=== PATIENT | male | born 1965 | race Caucasian/White ===

== ENCOUNTER 2020-01-01 11:51 | Emergency (ER) | payer MEDICAID ==
[~2020-01-01] VITALS: Ht 160 cm; Wt 59.0 kg
[2020-01-01 12:00] VITALS: BP 119/72
[2020-01-01] MEDS ORDERED: LIDOCAINE 1% HCL (LOCAL ANESTH.) INJ 20ML MDV IJ ONE (13:45)
[2020-01-01] MEDS ORDERED: TETANUS-DIPTH-ACEL PERTUSSIS 0.5ML SYRG IM ONE (13:45)
== END 2020-01-01 15:13 | disposition home or self-care (01) ==
LOC: ER 11:51 → EDBD 11:51 → ER 15:13
DX: S81.011A Laceration without foreign body, right knee, initial encounter (principal); F17.210 Nicotine dependence, cigarettes, uncomplicated; W18.02XA Striking against glass with subsequent fall, initial encounter; Y93.89 Activity, other specified; Y92.488 Other paved roadways as the place of occurrence of the external cause; Y99.8 Other external cause status
CPT/HCPCS: 12002; 73562; 99283; J2001; 90715

== ENCOUNTER 2024-12-20 13:11 | Inpatient (IN) | payer MEDICAID ==
[~2024-12-20] VITALS: Ht 160 cm; Wt 50.0 kg
--- NOTE | 2024-12-20 13:45 | ED.PDOC ---
SOB-HPI HPI Comments 59 y.o male presents to the ED for a chief complaint of SOB that started 4 days ago but worsened last night. Patient reports feeling a "drowning" sensation while laying down. Patient initially reported to triage nurse that he is homeless, has been sleeping outside and exposed to the cold weather for an extended amount of hours, but upon my assessment, patient denied being homeless and that his home place is originally cold inside. Patient is a poor historian. No other symptoms or pain reported. Chief Complaint: Shortness of Breath Time Seen by MD: 13:26 Primary Care Provider: JACQUELINE Reviewed notes: Nurses Notes, Medications, Allergies Information Source: Patient Mode of Arrival: Ambulatory Severity: Moderate Timing: Days (4) Duration: Since onset Context: At Rest PE Risk Factors: None History of: None Modifying Factors: Nothing Past Medical History PAST MEDICAL HISTORY: Denies Surgical History: Denies all surgeries Family History Family History: Reviewed,noncontributory to illness Social History Smoker: Cigarettes Alcohol: Heavy Drugs: Denies Drug Use Lives In: Homeless Constitutional: denies: chills, diaphoresis, fatigue, fever, malaise, sweats, weakness, others EENTM: denies: blurred vision, double vision, ear bleeding, ear discharge, ear drainage, ear pain, ear ringing, eye pain, eye redness, hearing loss, mouth pain, mouth swelling, nasal discharge, nose bleeding, nose congestion, nose pain, photophobia, tearing, throat pain, throat swelling, voice changes, others Respiratory: reports: SOB at rest, shortness of breath, SOB with excertion; denies: cough, hemoptysis, orthopnea, stridor, wheezing, others Cardiovascular: denies: chest pain, dizzy spells, diaphoresis, Dyspnea on exertion, edema, irregular heart beat, left arm pain, lightheadedness, palpitations, PND, syncope, others Gastrointestinal: denies: abdomen distended, abdominal pain, blood streaked bowels, constipated, diarrhea, dysphagia, difficulty swallowing, hematemesis, melena, nausea, poor appetite, poor fluid intake, rectal bleeding, rectal pain, vomiting, others Genitourinary: denies: burning, dysuria, flank pain, frequency, hematuria, incontinence, penile discharge, penile sore, pain, testicle pain, testicle swel ling, urgency, others Neurological: denies: dizziness, fainting, headache, left sided numbness, left sided weakness, numbness, paresthesia, pre-existing deficit, right sided numbness, right sided weakness, seizure, speech problems, tingling, tremors, weakness, others Musculoskeletal: denies: back pain, gout, joint pain, joint swelling, muscle pain, muscle stiffness, neck pain, others Integumetry: denies: bruises, change in color, change in hair/nails, dryness, laceration, lesions, lumps, rash, wounds, others Allergic/Immunocompromised: denies: Difficulty Healing, Frequent Infections, Hives, Itching, others Hematologic/Lymphatic: denies: anemia, blood clots, easy bleeding, easy bruising, swollen glands, others Endocrine: denies: excessive hunger, excessive sweating, excessive thirst, excessive urination, flushing, intolerance to cold, intolerance to heat, unexplained weight gain, unexplained weight loss, others Psychiatric: denies: anxiety, bipolar disorder, depression, hopeless, panic disorder, schizophrenia, sleepless, suicidal, others All Other Systems: Reviewed and Negative Physical Exam General Appearance: No Apparent Distress, Normal HEENT: Normal ENT Inspection, Pharynx Normal, TMs Normal Neck: Full Range of Motion, Non-Tender, Normal, Normal Inspection Respiratory: Chest Non-Tender, Lungs Clear, No Accessory Muscle Use, No Respiratory Distress, Normal Breath Sounds Cardiovascular: No Edema, No JVD, No Murmur, No Gallop, Normal Peripheral Pulses, Regular Rate/Rhythm Breast Exam: Deferred Gastrointestinal: No Organomegaly, Non Tender, No Pulsatile Mass, Normal Bowel Sounds, Soft Genitalia: Deferred Pelvic: Deferred Rectal: Deferred Extremities: No calf tenderness, Normal capillary refill, Normal inspection, Normal range of motion, Non-tender, No pedal edema Musculoskeletal : Apperance: Normal Neurologic: Alert, lap hand tool II-XII nml as Tested, No Motor Deficits, Normal Affect, Normal Mood, No Sensory Deficits Cerebellar Function: Normal Reflexes: Normal Skin: Dry, Normal Color, Warm Lymphatic: No Adenopathy Was a procedure done? Was a procedure done?: No Differential Dx Differential Diagnosis: COPD, Pneumonia, Respiratory Distress, URI X-Ray, Labs, Meds, VS Vital Signs Date Time Temp Pulse Resp B/P (MAP) Pulse Ox O2 Delivery O2 Flow Rate FiO2 12/20/24 14:29 126 12/20/24 13:26 136 12/20/24 13:25 22 99 Room Air 0 12/20/24 13:20 99.1 141 22 134/99 (111) 99 Lab Test 12/20/24 14:45 12/20/24 13:56 Range/Units Troponin I High Sensitivity 15 15 </=54 ng/L White Blood Count 17.7 H 4.4-10.8 10^3/uL Red Blood Count 5.05 4.5-5.90 10^6/uL Hemoglobin 15.5 13.5-17.5 g/dL Hematocrit 46.6 41.0-53.0 % Mean Corpuscular Volume 92.4 80.0-100.0 fL Mean Corpuscular Hemoglobin 30.7 28.0-32.0 pg Mean Corpuscular Hemoglobin Concent 33.3 32.0-36.0 g/dL Red Cell Distribution Width 13.1 11.8-14.3 % Platelet Count 261 140-450 10^3/uL Mean Platelet Volume 7.3 6.9-10.8 fL Neutrophils (%) (Auto) 84.7 H 37.0-80.0 % Lymphocytes (%) (Auto) 4.4 L 10.0-50.0 % Monocytes (%) (Auto) 10.4 0.0-12.0 % Eosinophils (%) (Auto) 0.1 0.0-7.0 % Basophils (%) (Auto) 0.4 0.0-2.0 % Neutrophils # (Auto) 15.0 H 1.6-8.6 10 ^3/uL Lymphocytes # (Auto) 0.8 0.4-5.4 10 ^3/uL Monocytes # (Auto) 1.8 H 0-1.3 10 ^3/uL Eosinophils # (Auto) 0 0-0.8 10 ^3/uL Basophils # (Auto) 0.1 0-0.2 10 ^3/uL Nucleated Red Blood Cells 0.0 % Prothrombin Time 11.5 9.3-11.8 sec Prothrombin Time INR 1.09 0.9-1.15 Activated Partial Thromboplast Time 31.5 24.5-34.5 SEC D-Dimer, Quantitative 1.93 H 0.0-0.49 mg/L FEU Sodium Level 133 L 136-145 mmol/L Potassium Level 3.9 3.5-5.1 mmol/L Chloride Level 100 98-107 mmol/L Carbon Dioxide Level 23 20-31 mmol/L Anion Gap 10 5-15 Blood Urea Nitrogen 16 9-23 mg/dL Creatinine 0.92 0.700-1.30 mg/dL Glomerular Filtration Rate Calc 97 >90 mL/min BUN/Creatinine Ratio 17.4 10.0-20.0 Serum Glucose 128 H 74-106 mg/dL Calcium Level 9.9 8.7-10.4 mg/dL Magnesium Level 1.8 1.6-2.6 mg/dL Total Bilirubin 0.5 0.2-1.0 mg/dL Aspartate Amino Transferase (AST) 50 H 13-40 U/L Alanine Aminotransferase (ALT) 50 H 7-40 U/L Alkaline Phosphatase 160 H 46-116 U/L B-Type Natriuretic Peptide 55.36 0-100 pg/mL Total Protein 7.0 5.7-8.2 g/dL Albumin 4.6 3.2-4.8 g/dL CHEST RADIOGRAPH Indication: dyspnea Technique: Single frontal view of the chest was obtained COMPARISON: None FINDINGS: There is patchy infiltrate in the right lung base partially obscuring the right hemidiaphragm. No pneumothorax or pulmonary edema. The heart is not enlarged. There is thoracolumbar scoliosis. There are postoperative changes of single posterior spinal dayday. The right humeral head is high-riding consistent with significant rotator cuff tendinopathy. IMPRESSION: 1. Right basilar pneumonia. 2. The left lung is clear. X-Ray, Labs, Meds, VS Comment This chronically unwell appearing 59-year-old male presents to the emergency room secondary to to 3 history of shortness of breath. Shortness of breath and worse when he lays down. Physical exam was benign. The patient did not have lower extremity edema or any adventitious breath sounds. His EKG showed a right bundle branch block. Second EKG was read by the machine as being a STEMI. We r eached out to Dr. Montgomery who agreed this is not a STEMI. Time of 1ST Reevaluation: 13:43 Reevaluation 1ST: Unchanged Patient Education/Counseling: Diagnosis, Treatment, Prognosis Family Education/Counseling: No Family Present Critical Care Note Critical Care Time?: No Stability Stability form required: No Heart Score Heart Score: Heart Score Response (Comments) Value History N/A 0 EKG N/A 0 Age N/A 0 Risk Factors N/A 0 Troponin N/A 0 Total 0 I personally scribed for SONJA LAZO MD ([email or web address]) on 12/20/24 at 13:45. Electronically submitted by Danae Chandra ([facility]). I personally scribed for SONJA LAZO MD ([email or web address]) on 12/20/24 at 15:32. Electronically submitted by Danae Chandra ([facility]). SONJA LAZO MD Dec 20, 2024 13:45
--- NOTE | 2024-12-20 13:59 | DVH ---
CHEST RADIOGRAPH Indication: dyspnea Technique: Single frontal view of the chest was obtained COMPARISON: None FINDINGS: There is patchy infiltrate in the right lung base partially obscuring the right hemidiaphragm. No pne umothorax or pulmonary edema. The heart is not enlarged. There is thoracolumbar scoliosis. There are postoperative changes of single posterior spinal dayday. The right humeral head is high-riding consiste nt with significant rotator cuff tendinopathy. IMPRESSION: 1. Right basilar pneumonia. 2. The left lung is clear.
[2024-12-20 14:23] LABS: Basophils # (auto) 0.1 10 ^3/uL (0-0.2); Basophils % (auto) 0.4 % (0.0-2.0); Eosinophils # (auto) 0 10 ^3/uL (0-0.8); Eosinophils % (auto) 0.1 % (0.0-7.0); Hematocrit 46.6 % (41.0-53.0); Hemoglobin 15.5 g/dL (13.5-17.5); Lymphocytes # (auto) 0.8 10 ^3/uL (0.4-5.4); Lymphocytes % (auto) 4.4 % (10.0-50.0); Mean Corpuscular Hemoglobin 30.7 pg (28.0-32.0); Mean Corpuscular Hgb Conc. 33.3 g/dL (32.0-36.0); Mean Corpuscular Volume 92.4 fL (80.0-100.0); Monocytes # (auto) 1.8 10 ^3/uL (0-1.3); Monocytes % (auto) 10.4 % (0.0-12.0); Neutrophils % (auto) 84.7 % (37.0-80.0); Platelet Count (auto) 261 10^3/uL (140-450); Red Blood Cells 5.05 10^6/uL (4.5-5.90); Red Cell Distribution Width 13.1 % (11.8-14.3); White Blood Cell 17.7 10^3/uL (4.4-10.8)
[2024-12-20 14:39] LABS: Albumin 4.6 g/dL (3.2-4.8); Anion Gap 10 (5-15); BUN/Creatinine Ratio 17.4 (10.0-20.0); Blood Urea Nitrogen 16 mg/dL (9-23); Calcium 9.9 mg/dL (8.7-10.4); Carbon Dioxide 23 mmol/L (20-31); Chloride 100 mmol/L (98-107); Magnesium 1.8 mg/dL (1.6-2.6); Potassium 3.9 mmol/L (3.5-5.1)
[2024-12-20 14:40] LABS: Bilirubin, Total 0.5 mg/dL (0.2-1.0)
[2024-12-20 14:55] LABS: Alanine Aminotransferase 50 U/L (7-40); Alkaline Phosphatase 160 U/L (46-116); Aspartate Aminotransferase 50 U/L (13-40); Glucose 128 mg/dL (74-106); Sodium 133 mmol/L (136-145)
[2024-12-20 15:22] LABS: INR 1.09 (0.9-1.15); Partial Thromboplastin Time 31.5 SEC (24.5-34.5); Prothrombin Time 11.5 sec (9.3-11.8)
--- NOTE | 2024-12-20 16:25 | ECG ---
[facility] Test Date: 2024-12-20 Test Time: 16:23:15 Pat Name: JOSE ANTONIO DE LA O Department: ER Room: 0218T Gender: M Application Technician: DAXA : 1965 Requested By: SONJA LAZO Order Number: [id number] Reading MD: Aditya Farr Measurements Intervals [place] Rate: 126 P: 16 ID: 131 QRS: 19 QRSD: 133 T: 24 QT: 326 QTc: 473 Interpretive Statements Sinus tachycardia Right bundle branch block LVH by voltage Inferior infarct, acute (LCx) Lateral leads are also involved Electronically Signed On 12-24-2024 16:28:56 PST by Aditya Farr Please click the below link to view image of tracing.
[2024-12-20] MEDS: METOPROLOL TARTRATE 1MG/1ML-5ML VIAL IV ONE (17:41)
[2024-12-20 18:06] LABS: COVID19 ANTIGEN SOFIA FIA NEGATIVE (NEGATIVE); Rapid Influenza A Negative (Negative); Rapid Influenza B Negative (Negative)
[2024-12-20] MEDS ORDERED: NITROGLYCERIN 0.4 MG SL TAB SL PRN (19:00)
[2024-12-20] MEDS ORDERED: ONDANSETRON HCL 4 MG/2 ML VIAL IV PRN (19:00)
[2024-12-20] MEDS ORDERED: MORPHINE SULFATE INJ 2 MG/ml SYRG IV PRN (19:00)
[2024-12-20] MEDS ORDERED: TEMAZEPAM 15 MG CAP PO PRN (19:00)
[2024-12-20 19:45] VITALS: PULSE 138; RESP 18; O2SAT 95
[2024-12-20 19:50] LABS: Lactic Acid w/Reflex 3.1 mmol/L (0.4-2.0)
[2024-12-20] MEDS: cefTRIAXone 1GM/50ML D5W 50 ML IV ONE (20:05)
[2024-12-20] MEDS: cefTRIAXone 1GM/50ML D5W 50 ML IV SCH (20:06)
[2024-12-20] MEDS: SODIUM CHLORIDE 0.9% 500 ML IV ONE (20:06)
[2024-12-20] MEDS: ACETAMINOPHEN 325 MG TAB PO PRN (20:07)
[2024-12-20] MEDS: IOHEXOL 350 MG/ML 100ML IJ ONE (20:17)
[2024-12-20] MEDS: AZITHROMYCIN 500MG/ 250ML 250 ML IV ONE (20:54)
[2024-12-20 22:05] VITALS: O2SAT 95
[2024-12-20 22:06] VITALS: BP 134/92; PULSE 117; RESP 16; TEMP 98; O2SAT 95
--- NOTE | 2024-12-20 22:12 | DVH ---
INDICATION: r/o pe COMPARISON: No prior studies for comparison. TECHNIQUE: Multidetector CTA of the chest was performed of the chest with 100 cc of intravenous contr ast. PULMONARY ANGIOGRAPHY PROTOCOL was utilized using a bolus-tracking technique centered on the sonya n pulmonary artery. Axial, coronal and sagittal multiplanar and MIP reformats were performed. Radiation Dose Information: CT Dose: CTDI volume is 9.81 mGy. Dose-length product is 409.58 mGy*cm Omnipaque 350: 100 mL The dose indicators for CT are the volume Computed Tomography (CT) Dose Index (CTDIvol) and the Dose Length Product (DLP), and are measured in units of mGy and mGy-cm, respectively. These indicators are not patient dose, but values generated from the CT scanner acquisition factors. The report includes radiation exposure data for exposures received during this examination. Findings: Pulmonary artery: Normal caliber of the pulmonary artery. No large central or large segmental pulmo nary embolism. Lower neck: Normal thyroid. Lungs: 2.5 x 2.2 cm pleural-based nodule or mass Heart/Vascular Structures: Normal heart size. Normal caliber and enhancement of the aorta. Lymph Nodes: No adenopathy Pleura: No pleural effusion or significant pneumothorax. Musculoskeletal: No acute osseous abnormality. Dextroscoliosis of the thoracic spine. Paraspinal ro d in place in the thoracic spine. Compression T10. Upper abdomen: Limited portions of the upper abdomen are unremarkable. IMPRESSION: 1. No pulmonary embolism. 2. No findings of pulmonary artery hypertension. 3. 2.5 x 2.2 cm pleural-based consolidation left upper lung field recommend PET scan and/or follow-u p CT to evaluate for change. HS:Y
[2024-12-21] VITALS (12 sets, daily range): BP systolic 115–135; BP diastolic 75–91; PULSE 85–129; RESP 18–28; TEMP 99–101.7; O2SAT 94–100
--- NOTE | 2024-12-21 00:41 | DVHHP2 ---
History of Present Illness Reason for Visit: Shortness of breath History of Present Illness 59-year-old male presents for evaluation of shortness for breath. Patient endorses a four day history of worsening shortness for breath with associated cough with yellow phlegm. Denies chest pain or palpitations. Reports occasional chills. No other acute complaints reported. Past Medical History Denies Past Surgical History Denies Family History Noncontributory Smoke: No ALCOHOL: none Drugs: None Lives: with Family Review of Systems Review of Systems Review of systems are currently negative otherwise addressed in HPI. Allergies: Coded Allergies: NO KNOWN ALLERGIES (Unverified , 02/08/14) Medications Current Medications Medications Dose Ordered Sig/Thierry Route Start Time Stop Time Status Last Admin Dose Admin Ceftriaxone Sodium 50 ml @ 100 mls/hr DAILY@1900 IV 12/21/24 19:00 12/20/24 20:06 100 MLS/HR Azithromycin 250 ml @ 125 mls/hr DAILY IV 12/21/24 19:00 Albuterol 2.5 mg Q6HPRN PRN NEB 12/20/24 19:00 Temazepam 15 mg QHSP PRN PO 12/20/24 19:00 Ondansetron HCl 4 mg Q4HP PRN IV 12/20/24 19:00 Acetaminophen 650 mg Q6HP PRN PO 12/20/24 19:00 12/20/24 20:07 650 MG Nitroglycerin 0.4 mg Q5MINP PRN SL 12/20/24 19:00 Morphine Sulfate 2 mg Q30M PRN IV 12/20/24 19:00 Exam Vital Signs Vital Signs Date Time Temp Pulse Resp B/P (MAP) Pulse Ox O2 Delivery O2 Flow Rate FiO2 12/20/24 23:00 98.7 104 18 124/87 (99) 96 98.7 12/20/24 22:06 21 12/20/24 22:05 Room Air* 0 Exam Gen: 59-year-old male distress Skin: Warm, dry, normal color and texture, no rash. HEENT: Normocephalic atraumatic, mucous membranes moist and pink. Neck: Cervical and supraclavicular nodes normal without enlargement, trachea is midline, thyroid gland is normal without masses. Pulmonary: Clear to auscultation and percussion bilaterally. Cardiac: Regular rate and rhythm. No murmur Abdomen: Soft, nontender, nondistended, bowel sounds present all 4 quadrants, no guarding, no rigidity, no organomegaly. Extremities: No cyanosis, clubbing, no edema Neuro: Cranial nerves II through XII grossly intact, normal affect and speech, no focal motor deficits. Labs/Xrays ORDERING PHYSICIAN: SONJA LAZO MD PROCEDURE(s): CXRP - CHEST PORTABLE REASON: dyspnea ORDER NUMBER(s): [id number], ACCESSION NUMBER(s): [id number] CHEST RADIOGRAPH Indication: dyspnea Technique: Single frontal view of the chest was obtained COMPARISON: None FINDINGS: There is patchy infiltrate in the right lung base partially obscuring the right hemidiaphragm. No pneumothorax or pulmonary edema. The heart is not enlarged. There is thoracolumbar scoliosis. There are postoperative changes of single posterior spinal dayday. The right humeral head is high-riding consistent with significant rotator cuff tendinopathy. IMPRESSION: 1. Right basilar pneumonia. 2. The left lung is clear. Labs Test 12/20/24 22:19 12/20/24 17:11 12/20/24 14:45 12/20/24 13:56 Range/Units Lactic Acid Level 1.6 0.4-2.0 mmol/L Influenza Type A Antigen Negative Negative Influenza Type B Antigen Negative Negative SARS-CoV-2 Antigen (Rapid) Negative NEGATIVE Troponin I High Sensitivity 15 </=54 ng/L White Blood Count 17.7 H 4.4-10.8 10^3/uL Red Blood Count 5.05 4.5-5.90 10^6/uL Hemoglobin 15.5 13.5-17.5 g/dL Hematocrit 46.6 41.0-53.0 % Mean Corpuscular Volume 92.4 80.0-100.0 fL Mean Corpuscular Hemoglobin 30.7 28.0-32.0 pg Mean Corpuscular Hemoglobin Concent 33.3 32.0-36.0 g/dL Red Cell Distribution Width 13.1 11.8-14.3 % Platelet Count 261 140-450 10^3/uL Mean Platelet Volume 7.3 6.9-10.8 fL Neutrophils (%) (Auto) 84.7 H 37.0-80.0 % Lymphocytes (%) (Auto) 4.4 L 10.0-50.0 % Monocytes (%) (Auto) 10.4 0.0-12.0 % Eosinophils (%) (Auto) 0.1 0.0-7.0 % Basophils (%) (Auto) 0.4 0.0-2.0 % Neutrophils # (Auto) 15.0 H 1.6-8.6 10 ^3/uL Lymphocytes # (Auto) 0.8 0.4-5.4 10 ^3/uL Monocytes # (Auto) 1.8 H 0-1.3 10 ^3/uL Eosinophils # (Auto) 0 0-0.8 10 ^3/uL Basophils # (Auto) 0.1 0-0.2 10 ^3/uL Nucleated Red Blood Cells 0.0 % Prothrombin Time 11.5 9.3-11.8 sec Prothrombin Time INR 1.09 0.9-1.15 Activated Partial Thromboplast Time 31.5 24.5-34.5 SEC D-Dimer, Quantitative 1.93 H 0.0-0.49 mg/L FEU Sodium Level 133 L 136-145 mmol/L Potassium Level 3.9 3.5-5.1 mmol/L Chloride Level 100 98-107 mmol/L Carbon Dioxide Level 23 20-31 mmol/L Anion Gap 10 5-15 Blood Urea Nitrogen 16 9-23 mg/dL Creatinine 0.92 0.700-1.30 mg/dL Glomerular Filtration Rate Calc 97 >90 mL/min BUN/Creatinine Ratio 17.4 10.0-20.0 Serum Glucose 128 H 74-106 mg/dL Calcium Level 9.9 8.7-10.4 mg/dL Magnesium Level 1.8 1.6-2.6 mg/dL Total Bilirubin 0.5 0.2-1.0 mg/dL Aspartate Amino Transferase (AST) 50 H 13-40 U/L Alanine Aminotransferase (ALT) 50 H 7-40 U/L Alkaline Phosphatase 160 H 46-116 U/L B-Type Natriuretic Peptide 55.36 0-100 pg/mL Total Protein 7.0 5.7-8.2 g/dL Albumin 4.6 3.2-4.8 g/dL Assessment/Plan Assessment/Plan Assessment Community-acquired pneumonia Early sepsis leukocytosis Plan Admit the patient to [facility] to the hospitalist Med nebs Rocephin/azithromycin Continue treatment per orders. Plan discussed with: Patient My Orders Orders - ASHA GRAY Procedure Category Date Status Time Ceftriaxone 1gm/50ml PHA 12/21/24 In Process D5w (Rocephin) 19:00 Azithromycin 500mg/ PHA 12/21/24 In Process 250ml (Zithromax 50 19:00 Albuterol Medneb PHA 12/20/24 In Process (Ventolin Medneb) 19:[address] 12/20/24 Resulted Contrast 18:58 Basic Metabolic Panel LAB 12/21/24 Logged 04:00 Admit ADMIT 12/20/24 Transmitted 18:58 Temazepam (Restoril) PHA 12/20/24 In Process 19:00 Ondansetron Hcl PHA 12/20/24 In Process (Zofran) 19:00 Complete Blood Count LAB 12/21/24 Logged 04:00 Cardiac DIET 12/21/24 Transmitted Diet-2gna,Lofat,Lochol Breakfast Condition: Fair TONIA 12/20/24 In Process 18:58 Acetaminophen Tablet PHA 12/20/24 In Process (Tylenol Tablet) 19:00 Bedrest With Bathroom TONIA 12/20/24 In Process Privileg 18:58 Nitroglycerin PHA 12/20/24 In Process Sublingual (Ntrostat 19:00 Morphine Sulfate PHA 12/20/24 In Process Injection 19:00 Stat Ekg For Chest TONIA 12/20/24 In Process Pain 18:58 Notify Md Of Changes TONIA 12/20/24 In Process From Base 18:58 Underwriting Specialist For TONIA 12/20/24 In Process 24 Hours 18:58 Emergency Dysrhythmia TONIA 12/20/24 In Process Protocol 18:58 Rhythm Strips Once TONIA 12/20/24 In Process Every Shift 18:58 Oxygen By Nasal RT 12/20/24 Transmitted Cannula 18:58 Date of Service: Dec 20, 2024 Billing Provider: ASHA GRAY Common Visit Codes: [id number] INP/OBS CARE (HIGH) ASHA GRAY Dec 21, 2024 00:41
[2024-12-21 04:31] LABS: Basophils # (auto) 0.1 10 ^3/uL (0-0.2); Basophils % (auto) 0.3 % (0.0-2.0); Eosinophils # (auto) 0 10 ^3/uL (0-0.8); Eosinophils % (auto) 0.1 % (0.0-7.0); Hematocrit 41.6 % (41.0-53.0); Lymphocytes # (auto) 0.6 10 ^3/uL (0.4-5.4); Lymphocytes % (auto) 3.5 % (10.0-50.0); Mean Corpuscular Hemoglobin 30.8 pg (28.0-32.0); Mean Corpuscular Hgb Conc. 33.8 g/dL (32.0-36.0); Mean Corpuscular Volume 91.3 fL (80.0-100.0); Monocytes # (auto) 1.5 10 ^3/uL (0-1.3); Monocytes % (auto) 9.2 % (0.0-12.0); Neutrophils # (auto) 14.4 10 ^3/uL (1.6-8.6); Neutrophils % (auto) 86.9 % (37.0-80.0); Platelet Count (auto) 251 10^3/uL (140-450); Red Blood Cells 4.56 10^6/uL (4.5-5.90); Red Cell Distribution Width 13.2 % (11.8-14.3); White Blood Cell 16.6 10^3/uL (4.4-10.8)
[2024-12-21 04:41] LABS: Chloride 99 mmol/L (98-107); Potassium 3.6 mmol/L (3.5-5.1)
[2024-12-21 04:42] LABS: Anion Gap 10 (5-15); Calcium 9.5 mg/dL (8.7-10.4); Carbon Dioxide 22 mmol/L (20-31)
[2024-12-21 04:47] LABS: BUN/Creatinine Ratio 13.1 (10.0-20.0); Blood Urea Nitrogen 11 mg/dL (9-23)
[2024-12-21 04:53] LABS: Glucose 174 mg/dL (74-106); Sodium 131 mmol/L (136-145)
--- NOTE | 2024-12-21 07:12 | ECG ---
[facility] Test Date: 2024-12-20 Test Time: 14:29:08 Pat Name: JOSE ANTONIO DE LA O Department: ER Room: 0218T Gender: M Iron Setter: CHERELLE : 1965 Requested By: SONJA LAZO Order Number: [id number] Reading MD: Aditya Farr Measurements Intervals [place] Rate: 126 P: 5 NM: 138 QRS: -99 QRSD: 128 T: 21 QT: 328 QTc: 475 Interpretive Statements Sinus tachycardia RBBB and LAFB LVH by voltage Inferior infarct, acute Lateral leads are also involved Electronically Signed On 12-24-2024 16:28:53 PST by Aditya Farr Please click the below link to view image of tracing.
--- NOTE | 2024-12-21 07:12 | ECG ---
[facility] Test Date: 2024-12-20 Test Time: 13:26:32 Pat Name: JOSE ANTONIO DE LA O Department: ER Room: 0218T Gender: M Nuclear Security Officer: JOSE : 1965 Requested By: SONJA LAZO Order Number: [id number] Reading MD: Aditya Farr Measurements Intervals [place] Rate: 136 P: -10 [place]: 126 QRS: -59 QRSD: 127 T: 29 QT: 306 QTc: 461 Interpretive Statements Sinus tachycardia Atrial premature complex RBBB and LAFB ST elevation suggests acute pericarditis Electronically Signed On 12-24-2024 16:28:48 PST by Aditya Farr Please click the below link to view image of tracing.
[2024-12-21] MEDS: ALBUTEROL SULF 2.5 MG/0.5ML(0.5%) NEB SOLN NEB PRN (09:42)
[2024-12-21 10:45] LABS: Urine Bacteria None Seen /hpf (None Seen)
[2024-12-21 11:17] LABS: Urine Blood TRACE /uL (Negative); Urine Clarity Clear (Clear); Urine Color Yellow (Yellow); Urine Protein, UAD 1+ (Negative); Urine Specific Gravity 1.039 (1.001-1.035); Urine Squamous Epithelial Cell FEW /hpf (<5); Urine Urobilinogen 8 mg/dL (Negative); Urine WBC 2 /hpf (0 - 3); Urine pH 6.5 (5.0-9.0)
[2024-12-21 11:45] LABS: Amphetamine Screen, Urine Pos (NEGATIVE); Barbiturate Scree,Urine Neg (NEGATIVE); Benzodiazephine Screen, Urine Neg (NEGATIVE); Cannabinoid Screen, Urine Pos (NEGATIVE); Cocaine Screen, Urine Neg (NEGATIVE); Opiate Scree,Urine Neg (NEGATIVE); Phencyclidine Screen, Urine Neg (NEGATIVE)
--- NOTE | 2024-12-21 15:27 | DVHPNRES ---
Progress Note Date Seen: Dec 21, 2024 Resident Creating Document: MARKUS STEINBERG RESIDENT Has the PT tested + for MRSA If YES, has PT been informed?: No Medical Necessity Reason Pt with a Central, PICC or Fol: No Subjective Review of Systems 59-year-old male with no PMHx presents for evaluation of shortness for breath for 4 days with associated cough with yellow phlegm. Denies chest pain or palpitations. Reports occasional chills. No other acute complaints reported. Pt stated smoking 3 cig per day Objective vital signs Vital Sign Date Time Temp Pulse Resp B/P (MAP) Pulse Ox O2 Delivery O2 Flow Rate FiO2 12/21/24 14:00 99.4 100 19 134/61 (85) 95 99.4 12/21/24 09:47 Nasal Cannula* 2 28 Total Intake and Output 12/20/24 12/20/24 12/21/24 15:00 23:00 07:00 Intake Total 850 ml Balance 850 ml medications Current Medications Medications Dose Ordered Sig/Thierry Route Start Time Stop Time Status Last Admin Dose Admin Ceftriaxone Sodium 50 ml @ 100 mls/hr DAILY@1900 IV 12/21/24 19:00 12/20/24 20:06 100 MLS/HR Azithromycin 250 ml @ 125 mls/hr DAILY IV 12/21/24 19:00 Albuterol 2.5 mg Q6HPRN PRN NEB 12/20/24 19:00 12/21/24 09:42 2.5 MG Temazepam 15 mg QHSP PRN PO 12/20/24 19:00 Ondansetron HCl 4 mg Q4HP PRN IV 12/20/24 19:00 Acetaminophen 650 mg Q6HP PRN PO 12/20/24 19:00 12/21/24 11:45 650 MG Nitroglycerin 0.4 mg Q5MINP PRN SL 12/20/24 19:00 Morphine Sulfate 2 mg Q30M PRN IV 12/20/24 19:00 Sodium Chloride 1,000 ml @ 75 mls/hr [id number] IV 12/21/24 15:15 UNV Examination Gen: 59-year-old male distress Skin: Warm, dry, normal color and texture, no rash. HEENT: Normocephalic atraumatic, mucous membranes moist and pink. Neck: Cervical and supraclavicular nodes normal without enlargement, trachea is midline, thyroid gland is normal without masses. Pulmonary: Clear to auscultation and percussion bilaterally. Cardiac: Regular rate and rhythm. No murmur Abdomen: Soft, nontender, nondistended, bowel sounds present all 4 quadrants, no guarding, no rigidity, no organomegaly. Extremities: No cyanosis, clubbing, no edema Neuro: Cranial nerves II through XII grossly intact, normal affect and speech, no focal motor deficits. laboratory and microbiology Laboratory Tests 12/21/24 03:59 Test 12/21/24 03:59 Range/Units Serum Glucose 174 H 74-106 mg/dL Problem List/Assessment/Plan Problem List/Assessment/Plan #Sepsis due to PNA due to possible gram positive gram negative: consolidation #Hyponatremia: euvolemic #2.5 x 2.2 cm pleural-based consolidation left upper lung Plan Admit the patient to [facility] nebs Rocephin/azithromycin TSH and cortisol ordered NS 75cc/h Regular diet Case discussed with Dr Manley Plan discussed with: Patient, Other (rn) My Orders My Orders Orders - MARKUS STEINBERG Procedure Category Date Status Time Cortisol Am LAB 12/21/24 Logged 15:04 Thyroid Stimulating LAB 12/21/24 In Process Hormone 15:04 Sodium Chloride 0.9% PHA 12/21/24 Logged 15:15 Date of Service: Dec 21, 2024 Billing Provider: PABLO MANLEY MD Common Visit Codes: [id number] INP/OBS CARE (LOW) MARKUS STEINBERG Dec 21, 2024 15:27 PABLO MANLEY MD Dec 21, 2024 18:49
[2024-12-21] MEDS: SODIUM CHLORIDE 0.9% 1,000 ML IV SCH (17:04)
[2024-12-21] MEDS: AZITHROMYCIN 500MG/ 250ML 250 ML IV SCH (20:19)
[2024-12-22] VITALS (14 sets, daily range): BP systolic 112–140; BP diastolic 75–90; PULSE 101–117; RESP 16–20; TEMP 98.2–99.8; O2SAT 90–100
[2024-12-22 07:36] LABS: Basophils # (auto) 0.1 10 ^3/uL (0-0.2); Basophils % (auto) 0.3 % (0.0-2.0); Eosinophils # (auto) 0 10 ^3/uL (0-0.8); Eosinophils % (auto) 0.2 % (0.0-7.0); Hematocrit 39.9 % (41.0-53.0); Hemoglobin 13.5 g/dL (13.5-17.5); Lymphocytes # (auto) 0.7 10 ^3/uL (0.4-5.4); Lymphocytes % (auto) 4.5 % (10.0-50.0); Mean Corpuscular Hemoglobin 30.7 pg (28.0-32.0); Mean Corpuscular Hgb Conc. 33.8 g/dL (32.0-36.0); Monocytes # (auto) 1.5 10 ^3/uL (0-1.3); Monocytes % (auto) 9.2 % (0.0-12.0); Neutrophils # (auto) 13.7 10 ^3/uL (1.6-8.6); Neutrophils % (auto) 85.8 % (37.0-80.0); Platelet Count (auto) 244 10^3/uL (140-450); Red Blood Cells 4.39 10^6/uL (4.5-5.90); Red Cell Distribution Width 13.3 % (11.8-14.3)
[2024-12-22 07:44] LABS: Albumin 3.8 g/dL (3.2-4.8); Anion Gap 9 (5-15); Aspartate Aminotransferase 37 U/L (13-40); BUN/Creatinine Ratio 16.1 (10.0-20.0); Bilirubin, Total 0.3 mg/dL (0.2-1.0); Blood Urea Nitrogen 10 mg/dL (9-23); Calcium 9.1 mg/dL (8.7-10.4); Carbon Dioxide 25 mmol/L (20-31); Chloride 101 mmol/L (98-107); Glucose 90 mg/dL (74-106); Total Protein 6.7 g/dL (5.7-8.2)
[2024-12-22 07:48] LABS: Alanine Aminotransferase 45 U/L (7-40); Alkaline Phosphatase 150 U/L (46-116); Potassium 3.2 mmol/L (3.5-5.1); Sodium 135 mmol/L (136-145)
[2024-12-22] MEDS: POTASSIUM CHL 20MEQ/100ML 100 ML IV SCH (09:37)
[2024-12-22 12:32] LABS: Base Excess 0.5 mmol/L (-2.0-3.0)
--- NOTE | 2024-12-22 18:46 | DVHPNRES ---
Progress Note Date Seen: Dec 22, 2024 Resident Creating Document: MARKUS STEINBERG RESIDENT Has the PT tested + for MRSA If YES, has PT been informed?: No Medical Necessity Reason Pt with a Central, PICC or Fol: No Subjective Review of Systems 59-year-old male with no PMHx presents for evaluation of shortness for breath for 4 days with associated cough with yellow phlegm. Denies chest pain or palpitations. Reports occasional chills. No other acute complaints reported. Pt stated smoking 3 cig per day Objective vital signs Vital Sign Date Time Temp Pulse Resp B/P (MAP) Pulse Ox O2 Delivery O2 Flow Rate FiO2 12/22/24 17:00 98.3 117 16 112/75 (87) 90 98.3 12/22/24 11:46 Room Air 0.0 12/22/24 11:46 21 Total Intake and Output 12/21/24 12/21/24 12/22/24 15:00 23:00 07:00 Intake Total 300 ml 300 ml Output Total 600 ml Balance 300 ml -300 ml medications Current Medications Medications Dose Ordered Sig/Thierry Route Start Time Stop Time Status Last Admin Dose Admin Ceftriaxone Sodium 50 ml @ 100 mls/hr DAILY@1900 IV 12/21/24 19:00 12/22/24 17:46 100 MLS/HR Azithromycin 250 ml @ 125 mls/hr DAILY IV 12/21/24 19:00 12/22/24 09:38 125 MLS/HR Albuterol 2.5 mg Q6HPRN PRN NEB 12/20/24 19:00 12/22/24 02:30 2.5 MG Temazepam 15 mg QHSP PRN PO 12/20/24 19:00 Ondansetron HCl 4 mg Q4HP PRN IV 12/20/24 19:00 Acetaminophen 650 mg Q6HP PRN PO 12/20/24 19:00 12/21/24 11:45 650 MG Nitroglycerin 0.4 mg Q5MINP PRN SL 12/20/24 19:00 Morphine Sulfate 2 mg Q30M PRN IV 12/20/24 19:00 Sodium Chloride 1,000 ml @ 75 mls/hr [id number] IV 12/21/24 15:15 12/22/24 18:34 75 MLS/HR Examination Gen: 59-year-old male Skin: Warm, dry, normal color and texture, no rash. HEENT: Normocephalic atraumatic, mucous membranes moist and pink. Neck: Cervical and supraclavicular nodes normal without enlargement, trachea is midline, thyroid gland is normal without masses. Pulmonary: Clear to auscultation and percussion bilaterally. Cardiac: Regular rate and rhythm. No murmur Abdomen: Soft, nontender, nondistended, bowel sounds present all 4 quadrants, no guarding, no rigidity, no organomegaly. Extremities: No cyanosis, clubbing, no edema Neuro: Cranial nerves II through XII grossly intact, normal affect and speech, no focal motor deficits. laboratory and microbiology Laboratory Tests 12/22/24 05:58 Test 12/22/24 05:58 Range/Units Serum Glucose 90 74-106 mg/dL Problem List/Assessment/Plan Problem List/Assessment/Plan #Acute respiratory failure resolved due to PNA #Sepsis due to PNA due to possible gram positive gram negative: consolidation #Hyponatremia: euvolemic resolving #Hypokalemia #2.5 x 2.2 cm pleural-based consolidation left upper lung Admit the patient to Med surge Med nebs Rocephin/azithromycin TSH and cortisol ordered NS 75cc/h Regular diet IV K+ Patient is being able to tolerate weaning of the o2, possible DC tomorrow Case discussed with Dr Manley Plan discussed with: Patient, Other (rn) My Orders My Orders Orders - MARKUS STEINBERG Procedure Category Date Status Time Titrate Oxygen TONIA 12/22/24 In Process 11:52 Abg W/ Co-Ox RT 12/22/24 Logged 11:52 Date of Service: Dec 22, 2024 Billing Provider: PABLO MANLEY MD Common Visit Codes: [id number] INP/OBS CARE(HIGH) MARKUS STEINBERG Dec 22, 2024 18:46 PABLO MANLEY MD Dec 22, 2024 20:29
[2024-12-23 01:00] VITALS: BP 122/78; PULSE 105; RESP 18; TEMP 98.2; O2SAT 99
[2024-12-23 05:00] VITALS: BP 123/80; PULSE 108; RESP 18; TEMP 98.6; O2SAT 99
[2024-12-23 08:00] VITALS: PULSE 87; PULSE 95; RESP 18; O2SAT 97
[2024-12-23 08:07] LABS: Alanine Aminotransferase 39 U/L (7-40); Anion Gap 7 (5-15); Aspartate Aminotransferase 25 U/L (13-40); BUN/Creatinine Ratio 16.7 (10.0-20.0); Basophils # (auto) 0 10 ^3/uL (0-0.2); Basophils % (auto) 0.2 % (0.0-2.0); Blood Urea Nitrogen 11 mg/dL (9-23); Calcium 9.6 mg/dL (8.7-10.4); Carbon Dioxide 25 mmol/L (20-31); Chloride 106 mmol/L (98-107); Eosinophils # (auto) 0.2 10 ^3/uL (0-0.8); Eosinophils % (auto) 1.3 % (0.0-7.0); Glucose 99 mg/dL (74-106); Hematocrit 41.2 % (41.0-53.0); Lymphocytes # (auto) 0.6 10 ^3/uL (0.4-5.4); Lymphocytes % (auto) 5.6 % (10.0-50.0); Mean Corpuscular Hemoglobin 31.1 pg (28.0-32.0); Mean Corpuscular Volume 91.6 fL (80.0-100.0); Monocytes # (auto) 1.2 10 ^3/uL (0-1.3); Monocytes % (auto) 10.1 % (0.0-12.0); Neutrophils # (auto) 9.6 10 ^3/uL (1.6-8.6); Neutrophils % (auto) 82.8 % (37.0-80.0); Platelet Count (auto) 250 10^3/uL (140-450); Potassium 3.8 mmol/L (3.5-5.1); Red Cell Distribution Width 13.4 % (11.8-14.3); Sodium 138 mmol/L (136-145); Total Protein 6.7 g/dL (5.7-8.2); White Blood Cell 11.6 10^3/uL (4.4-10.8)
[2024-12-23 08:13] LABS: Alkaline Phosphatase 138 U/L (46-116); Bilirubin, Total 0.2 mg/dL (0.2-1.0)
[2024-12-23 10:00] VITALS: O2SAT 97
[2024-12-23 10:32] VITALS: O2SAT 100
[2024-12-23] MEDS ORDERED: LEVO750T40 PO (11:56)
[2024-12-23] MEDS ORDERED: ALBUAER3 IN (11:57)
[2024-12-23] MEDS ORDERED: PRED20TA2 PO (11:58)
--- NOTE | 2024-12-23 14:26 | DVHDSRES ---
Discharge Summary Date of Admission Resident Creating Document: MARKUS STEINBERG RESIDENT Dec 20, 2024 at 18:58 Date of Discharge: Dec 23, 2024 Admitting Diagnosis acute hypoxic respiratory failure Labs/Diagnostic Data: Laboratory Results Test 12/23/24 07:28 12/22/24 12:26 12/21/24 09:40 12/21/24 09:30 White Blood Count 11.6 10^3/uL (4.4-10.8) Red Blood Count 4.50 10^6/uL (4.5-5.90) Hemoglobin 14.0 g/dL (13.5-17.5) Hematocrit 41.2 % (41.0-53.0) Mean Corpuscular Volume 91.6 fL (80.0-100.0) Mean Corpuscular Hemoglobin 31.1 pg (28.0-32.0) Mean Corpuscular Hemoglobin Concent 34.0 g/dL (32.0-36.0) Red Cell Distribution Width 13.4 % (11.8-14.3) Platelet Count 250 10^3/uL (140-450) Mean Platelet Volume 7.3 fL (6.9-10.8) Neutrophils (%) (Auto) 82.8 % (37.0-80.0) Lymphocytes (%) (Auto) 5.6 % (10.0-50.0) Monocytes (%) (Auto) 10.1 % (0.0-12.0) Eosinophils (%) (Auto) 1.3 % (0.0-7.0) Basophils (%) (Auto) 0.2 % (0.0-2.0) Neutrophils # (Auto) 9.6 10 ^3/uL (1.6-8.6) Lymphocytes # (Auto) 0.6 10 ^3/uL (0.4-5.4) Monocytes # (Auto) 1.2 10 ^3/uL (0-1.3) Eosinophils # (Auto) 0.2 10 ^3/uL (0-0.8) Basophils # (Auto) 0 10 ^3/uL (0-0.2) Nucleated Red Blood Cells 0.0 % Sodium Level 138 mmol/L (136-145) Potassium Level 3.8 mmol/L (3.5-5.1) Chloride Level 106 mmol/L (98-107) Carbon Dioxide Level 25 mmol/L (20-31) Anion Gap 7 (5-15) Blood Urea Nitrogen 11 mg/dL (9-23) Creatinine 0.66 mg/dL (0.700-1.30) Glomerular Filtration Rate Calc 109 mL/min (>90) BUN/Creatinine Ratio 16.7 (10.0-20.0) Serum Glucose 99 mg/dL (74-106) Calcium Level 9.6 mg/dL (8.7-10.4) Total Bilirubin 0.2 mg/dL (0.2-1.0) Aspartate Amino Transferase (AST) 25 U/L (13-40) Alanine Aminotransferase (ALT) 39 U/L (7-40) Alkaline Phosphatase 138 U/L (46-116) Total Protein 6.7 g/dL (5.7-8.2) Albumin 4.0 g/dL (3.2-4.8) Cortisol AM Sample 29.86 ug/dL (5.27-22.45) Blood Gas Specimen Type Arterial Blood Gas Sample Site Left radial Blood Gas Patient Temperature 37.0 Arterial Blood Date Drawn [id number] Arterial Blood pH 7.455 (7.350-7.450) Arterial Blood Partial Pressure CO2 34.7 mmHg (35.0-48.0) Arterial Blood Partial Pressure O2 60.8 mmHg (83.0-108.0) Arterial Blood HCO3 23.8 mmol/L (21.0-28.0) Arterial Blood Oxygen Saturation 91.6 % (94.0-98.0) Arterial Blood Base Excess 0.5 mmol/L (-2.0-3.0) Arterial Blood Oxyhemoglobin 90.8 % (94.0-98.0) Arterial Blood Carboxyhemoglobin 0.6 % (0.5-1.5) Arterial Blood Methemoglobin 0.3 % (0.0-1.5) Shivam Test Yes Blood Gas Total Hemoglobin 14.50 g/dL (13.5-17.5) Blood Gas Liter Flow 0.00 Blood Gas Modality Room air FiO2 % 21.0 Urine Color Yellow (Yellow) Urine Clarity Clear (Clear) Urine pH 6.5 (5.0-9.0) Urine Specific Pinch 1.039 (1.001-1.035) Urine Protein 1+ (Negative) Urine Ketones Trace (Negative) Urine Blood Trace /uL (Negative) Urine Nitrite Negative (Negative) Urine Bilirubin Negative (Negative) Urine Urobilinogen 8 mg/dL (Negative) Urine Leukocyte Esterase Negative /uL (Negative) Urine RBC 5 /hpf (0 - 3) Urine WBC 2 /hpf (0 - 3) Urine Squamous Epithelial Cells Few /hpf (<5) Urine Bacteria None seen /hpf (None Seen) Urine Sodium 56 mmol/L (40-220) Urine Glucose 2+ mg/dL (Normal) Urine Opiates Screen Neg (NEGATIVE) Urine Fentanyl Screen Neg (NEGATIVE) Urine Barbiturates Screen Neg (NEGATIVE) Urine Phencyclidine Screen Neg (NEGATIVE) Urine Amphetamines Screen Pos (NEGATIVE) Urine Benzodiazepines Screen Neg (NEGATIVE) Urine Cocaine Screen Neg (NEGATIVE) Urine Cannabinoids Screen Pos (NEGATIVE) Urine Osmolality 728 mOsm/kg Test 12/21/24 03:59 12/20/24 22:19 12/20/24 17:11 12/20/24 14:45 Hemoglobin A1c 5.8 % A1C (<5.7) Thyroid Stimulating Hormone (TSH) 0.83 uIU/mL (0.55-4.78) Lactic Acid Level 1.6 mmol/L (0.4-2.0) Influenza Type A Antigen Negative (Negative) Influenza Type B Antigen Negative (Negative) SARS-CoV-2 Antigen (Rapid) Negative (NEGATIVE) Troponin I High Sensitivity 15 ng/L (</=54) Test 12/20/24 13:56 Prothrombin Time 11.5 sec (9.3-11.8) Prothrombin Time INR 1.09 (0.9-1.15) Activated Partial Thromboplast Time 31.5 SEC (24.5-34.5) D-Dimer, Quantitative 1.93 mg/L FEU (0.0-0.49) Magnesium Level 1.8 mg/dL (1.6-2.6) B-Type Natriuretic Peptide 55.36 pg/mL (0-100) Other Laboratory Tests 12/23/24 07:28 Brief Hx & Hospital Course: A 59-year-old male with no significant past medical history presented with a 4- day history of shortness of breath, productive cough with yellow sputum, and occasional chills. He denied chest pain or palpitations. Initial workup revealed acute respiratory failure secondary to pneumonia with a 2.5 x 2.2 cm pleural- based consolidation in the left upper lung field. No pulmonary embolism or pulmonary hypertension was identified on imaging. The patient was diagnosed with sepsis due to pneumonia and euvolemic hyponatremia and hypokalemia. Antibiotics were initiated (ceftriaxone and azithromycin), along with supportive care, including oxygen therapy, nebulized bronchodilators, IV fluids, and potassium replacement. The patient demonstrated clinical improvement with resolution of acute respiratory failure and tolerance of oxygen weaning to room air. Given the absence of worsening symptoms, stable vitals, and improved laboratory parameters, he was deemed safe for discharge. Follow-up recommendations include outpatient imaging to monitor the lung consolidation, repeat CT to evaluate for changes, as well as follow-up with his primary care physician. Smoking cessation was advised, and the patient was educated on signs of recurrent respiratory distress. Gen: 59-year-old male Skin: Warm, dry, normal color and texture, no rash. HEENT: Normocephalic atraumatic, mucous membranes moist and pink. Neck: Cervical and supraclavicular nodes normal without enlargement, trachea is midline, thyroid gland is normal without masses. Pulmonary: Clear to auscultation and percussion bilaterally. Cardiac: Regular rate and rhythm. No murmur Abdomen: Soft, nontender, nondistended, bowel sounds present all 4 quadrants, no guarding, no rigidity, no organomegaly. Extremities: No cyanosis, clubbing, no edema Neuro: Cranial nerves II through XII grossly intact, normal affect and speech, no focal motor deficits. Case discussed with Dr Sanderson Time spent on care 23 min Operations or Procedures INDICATION: r/o pe COMPARISON: No prior studies for comparison. TECHNIQUE: Multidetector CTA of the chest was performed of the chest with 100 cc of intravenous contrast. PULMONARY ANGIOGRAPHY PROTOCOL was utilized using a bolus-tracking technique centered on the main pulmonary artery. Axial, coronal and sagittal multiplanar and MIP reformats were performed. Radiation Dose Information: CT Dose: CTDI volume is 9.81 mGy. Dose-length product is 409.58 mGy*cm Omnipaque 350: 100 mL The dose indicators for CT are the volume Computed Tomography (CT) Dose Index (CTDIvol) and the Dose Length Product (DLP), and are measured in units of mGy and mGy-cm, respectively. These indicators are not patient dose, but values generated from the CT scanner acquisition factors. The report includes radiation exposure data for exposures received during this examination. Findings: Pulmonary artery: Normal caliber of the pulmonary artery. No large central or large segmental pulmonary embolism. Lower neck: Normal thyroid. Lungs: 2.5 x 2.2 cm pleural-based nodule or mass Heart/Vascular Structures: Normal heart size. Normal caliber and enhancement of the aorta. Lymph Nodes: No adenopathy Pleura: No pleural effusion or significant pneumothorax. Musculoskeletal: No acute osseous abnormality. Dextroscoliosis of the thoracic spine. Paraspinal dayday in place in the thoracic spine. Compression T10. Upper abdomen: Limited portions of the upper abdomen are unremarkable. IMPRESSION: 1. No pulmonary embolism. 2. No findings of pulmonary artery hypertension. 3. 2.5 x 2.2 cm pleural-based consolidation left upper lung field recommend PET scan and/or follow-up CT to evaluate for change. Condition at Discharge: Stable Final Diagnosis/Problems List #Acute respiratory failure resolved due to PNA #Sepsis due to PNA due to possible gram positive gram negative: consolidation #Hyponatremia: euvolemic resolving #Hypokalemia resolved #2.5 x 2.2 cm pleural-based consolidation left upper lung #PE ruled out #NSTEMI ruled out Discharge Disposition: Home Discharge Instruct/Medications Diet: Regular Activity: Light activity Follow Up/Referral: f/u dc clinic, patient need f/u of the findings of ct scan in 6 months Medications: see prescription Discharge Statement: "Patient was advised to return to the ER or call 911 if any headaches, dizziness, shortness of breath, chest pain, abdominal pain, bleeding, fevers, or worsening of medical condition. Patient was counseled about treatment plan, medications, possible side effects, patientverbalized understanding. All questions were answered to the best of my ability. This discharge took greater then 30 minutes in planning, reviewing documentation, counseling the patient, and discussing with other team members." ASSESSMENT ASSESSMENT Assessment pneumonia Date of Service: Dec 23, 2024 Billing Provider: SIOBHAN SANDERSON MD Common Visit Codes: [id number]/OBS DISCH DAY >30min MARKUS STEINBERG RESIDENT Dec 23, 2024 14:26 SIOBHAN SANDERSON MD Dec 25, 2024 11:01
== END 2024-12-23 13:31 | disposition left against medical advice (07) | DRG 720 ==
LOC: ER 13:11 → TELE 18:58 → TELE-CENTR 12-21 14:24
PROVIDERS: ADMIT Internal Medicine; ATTEND General Practice
DX: A41.50 Gram-negative sepsis, unspecified (principal); J96.00 Acute respiratory failure, unspecified whether with hypoxia or hypercapnia; J15.69 Pneumonia due to other Gram-negative bacteria; J15.9 Unspecified bacterial pneumonia; E87.1 Hypo-osmolality and hyponatremia; Z20.822 Contact with and (suspected) exposure to COVID-19; E87.6 Hypokalemia; Z59.00 Homelessness unspecified
CPT/HCPCS: 36415; 36600; 71045; 71275; 80048; 80053; 80307; 81001; 82533; 82805; 83036; 83605; 83735; 83880; 83935; 84300; 84443; 84484; 85025; 85379; 85610; 85730; 87426; 87804; 93005; 94640; G0378; J3480